=== PATIENT | male | born 1935 ===

== ENCOUNTER → 2017-09-20 | Outpatient (REF) ==
[2017-09-20 13:37] LABS: BASO % 0.5 % (0.0-2.0); EOS # 0.4 (0.0-0.7); EOS % 7.2 % (0-4.0); GRAN # 3.6 (1.4-6.5); GRAN % 61.8 % (42.2-75.2); HEMATOCRIT 32.4 % (42.0-52.0); HEMOGLOBIN 10.9 g/dl (13.5-18.0); LYMPH # 0.9 (1.2-3.4); LYMPH % 15.8 % (20.0-51.0); MEAN CELL VOLUME 99 fl (80.0-100.0); MEAN CORPUSCULAR HEMOGLOBIN 33 pg (27.0-31.0); MEAN CORPUSCULAR HGB CONC 34 g/dl (33.0-37.0); MEAN PLATELET VOLUME 10.8 fl (7.4-10.4); MONO # 0.8 (0.1-0.6); MONO % 13.7 % (1.7-9.3); PLATELET COUNT 105 K/mm3 (130-400); RED BLOOD COUNT 3.29 M/mm3 (4.20-5.60); REDCELL DISTRIBUTION WIDTH-CV 13.1 % (11.5-14.5)
[2017-09-20 13:53] LABS: ALBUMIN 2.8 gm/dL (3.5-5.0); BILIRUBIN,TOTAL 0.4 mg/dL (0.0-1.0); CALCIUM 7.9 mg/dL (8.4-10.2); CREATININE, serum 0.86 mg/dL (0.66-1.25); PHENYTOIN (DILANTIN) 6.6 ug/mL (10.0-20.0); POTASSIUM 4.4 mmol/L (3.4-5.0); TOTAL PROTEIN 5.4 gm/dL (6.4-8.2)
== END ==
LOC: ZCOL.LAB 13:27
PROVIDERS: Internal Medicine
DX: I10 Essential (primary) hypertension (principal); R56.9 Unspecified convulsions